=== PATIENT | female | born 1965 | race Caucasian/White ===

== ENCOUNTER → 2024-04-03 14:39 | Outpatient (REF) | payer OTHER, SELFPAY ==
[2024-04-03 12:19] LABS: % Basophils 0.4 % (0-2); % Eosinophils 3.6 % (0-6); % Immature Granulocytes 0.2 % (0-0.5); % Lymphocytes 25.3 % (20.5-51.1); % Neutrophils 59.5 % (42.2-75.2); Absolute Eosinophils 0.2 10^3/uL (0-0.7); Absolute Lymphocytes 1.4 10^3/uL (1.2-3.4); Absolute Monocytes 0.6 10^3/uL (0.1-0.6); Absolute Neutrophils 3.2 10^3/uL (1.4-6.5); Hematocrit 38.1 % (37.0-47.0); Hemoglobin 12.4 g/dL (12.0-16.0); Mean Corp Hgb Conc. 32.5 g/dL (33.0-37.0); Mean Corpuscular Hgb 28.6 pg (27.0-31.0); Mean Platelet Volume 9.7 fL (7.4-10.4); Platelet Count 265 10^3/uL (130-400); Red Blood Cell Count 4.33 10^6/uL (4.20-5.40); Red Cell Dist. Width 15.6 % (11.5-14.5); White Blood Cell Count 5.3 10^3/uL (4.8-10.8)
[2024-04-03 13:38] LABS: ALT (SGPT) < 10 U/L (0-35); AST (SGOT) 25 U/L (14-36); Albumin 4.4 g/dl (3.5-5.0); Alkaline Phosphatase 261 U/L (38-126); Blood Urea Nitrogen 32 mg/dl (7-17); Calcium 9.6 mg/dl (8.4-10.2); Carbon Dioxide 23 mmol/L (22-30); Chloride 104 mmol/L (98-107); Glucose 92 mg/dl (70-99); Potassium 4.4 mmol/L (3.5-5.1); Sodium 134 mmol/L (135-145); Total Bilirubin 0.4 mg/dl (0.2-1.3); Total Protein 6.8 g/dl (6.3-8.2); eGFR > 60.00
== END ==
LOC: OIDL 14:39
PROVIDERS: ATTENDING PHYSICIAN Internal Medicine Hematology & Oncology
DX: G89.3 Neoplasm related pain (acute) (chronic) (principal)
CPT/HCPCS: 80053; 85025

== ENCOUNTER → 2024-04-04 09:43 | Outpatient (REF) | payer OTHER, SELFPAY | LOC: HWRAD 09:43 | PROVIDERS: ATTENDING PHYSICIAN Internal Medicine Hematology & Oncology; FAMILY PHYSICIAN Internal Medicine | DX: G89.3 Neoplasm related pain (acute) (chronic) (principal); C50.811 Malignant neoplasm of overlapping sites of right female breast | CPT/HCPCS: 71260; 74177; Q9967 ==

== ENCOUNTER → 2024-05-14 12:30 | Outpatient (REF) | payer OTHER, SELFPAY ==
[2024-05-14 12:56] VITALS: BP 101/72; BP_SYST 84
[2024-05-14 13:13] VITALS: BMI 22.9
[2024-05-14 14:06] VITALS: BP 102/88
== END ==
LOC: RADI 12:30
PROVIDERS: ATTENDING PHYSICIAN Internal Medicine Hematology & Oncology
DX: Z45.2 Encounter for adjustment and management of vascular access device (principal)
CPT/HCPCS: 36561; 77001

== ENCOUNTER → 2025-02-23 11:56 | Outpatient (REF) | payer OTHER, SELFPAY | LOC: RAD 11:56 | PROVIDERS: ATTENDING PHYSICIAN Internal Medicine Hematology & Oncology; FAMILY PHYSICIAN Internal Medicine | DX: G89.3 Neoplasm related pain (acute) (chronic) (principal); C50.811 Malignant neoplasm of overlapping sites of right female breast | CPT/HCPCS: 71260; 74177; Q9967 ==

== ENCOUNTER 2025-04-03 06:16 | Day surgery (SDC) | payer OTHER, SELFPAY | END 2025-04-03 11:04 | disposition home or self-care (01) | LOC: GI 06:16 | PROVIDERS: ATTENDING PHYSICIAN Specialist | DX: R13.10 Dysphagia, unspecified (principal); R11.0 Nausea; K44.9 Diaphragmatic hernia without obstruction or gangrene; K31.89 Other diseases of stomach and duodenum; Z85.3 Personal history of malignant neoplasm of breast | CPT/HCPCS: 43239; 88305; 88342 ==

== ENCOUNTER → 2025-07-08 13:05 | Outpatient (REF) | payer OTHER, SELFPAY | LOC: MRI 3T 13:05 | PROVIDERS: ATTENDING PHYSICIAN Specialist; FAMILY PHYSICIAN Internal Medicine | DX: R11.0 Nausea (principal); Z85.3 Personal history of malignant neoplasm of breast | CPT/HCPCS: 70553; A9575 ==